=== PATIENT | female | born 1975 | race Caucasian/White ===

== ENCOUNTER 2018-11-24 14:54 | Emergency (ER) | payer MEDICAID ==
[~2018-11-24] VITALS: Ht 177.8 cm; Wt 119.0 kg
[~2018-11-24 14:54] MED LIST: CLIN150C8 PO; GEN0.3OS OP
--- NOTE | 2018-11-24 15:57 | NUR ---
PATIENT [facility] APPT WITH [facility]
[2018-11-24] MEDS ORDERED: CLIN150C2 PO (16:02)
[2018-11-24 16:49] VITALS: BP 159/119
== END 2018-11-24 16:32 | disposition home or self-care (01) ==
LOC: ER 14:56
DX: K04.7 Periapical abscess without sinus (principal); F32.9 Major depressive disorder, single episode, unspecified; F17.200 Nicotine dependence, unspecified, uncomplicated; Z90.49 Acquired absence of other specified parts of digestive tract; Z56.0 Unemployment, unspecified; Z88.0 Allergy status to penicillin; Z79.899 Other long term (current) drug therapy
CPT/HCPCS: 99283

== ENCOUNTER 2019-02-27 17:34 | Emergency (ER) | payer MEDICAID ==
[~2019-02-27] VITALS: Ht 177.8 cm; Wt 118.0 kg
[2019-02-27 17:51] VITALS: BP 173/106
[2019-02-27] MEDS ORDERED: DOXYCYCLINE 100MG CAPSULE PO STA (18:13)
[2019-02-27] MEDS ORDERED: DOXY100C43 PO (18:14)
[2019-02-27] MEDS ORDERED: gentamicin 0.3% ophthalmic drops 5ML RIGHTEYE ONE (18:15)
== END 2019-02-27 18:54 | disposition home or self-care (01) ==
LOC: ER 17:35
DX: H10.9 Unspecified conjunctivitis (principal); F32.9 Major depressive disorder, single episode, unspecified; Z90.49 Acquired absence of other specified parts of digestive tract; Z56.0 Unemployment, unspecified; Z88.0 Allergy status to penicillin; Z79.899 Other long term (current) drug therapy
CPT/HCPCS: 99283